=== PATIENT | female | born 1990 | race Caucasian/White ===

== ENCOUNTER 2017-03-31 00:21 | Inpatient (IN) | payer MEDICAID ==
[~2017-03-31] VITALS: Ht 160 cm; Wt 68.2 kg
[~2017-03-31 00:21] MED LIST: PREN1TAB60 PO
[2017-03-31] MEDS ORDERED: LACTATED RINGERS 1,000 ML IV SCH ×3 (10:42→12:52)
[2017-03-31] MEDS ORDERED: OXYTOCIN 30U/ 0.9% NaCL 500ML 500 ML IV SCH (10:42)
[2017-03-31] MEDS ORDERED: NEWBORN KIT ONE (10:46)
[2017-03-31] MEDS ORDERED: SODIUM CITRATE/CITRIC ACID 30 ML UDC ONE (10:46)
[2017-03-31] MEDS ORDERED: METOCLOPRAMIDE 5 MG/ML, 2ML ONE (10:46)
[2017-03-31] MEDS ORDERED: OXYTOCIN 30U/ 0.9% NaCL 500ML 500 ML ONE (10:46)
[2017-03-31] MEDS ORDERED: METOCLOPRAMIDE 5 MG/ML, 2ML IV ONE (11:00)
[2017-03-31] MEDS ORDERED: SODIUM CITRATE/CITRIC ACID 30 ML UDC PO ONE (11:00)
[2017-03-31] MEDS ORDERED: PLEASE ENTER HEIGHT AND WEIGHT MC SCH (11:00)
[2017-03-31] MEDS ORDERED: LACTATED RINGERS 1,000 ML IVBOLUS ONE (11:00)
[2017-03-31 11:12] LABS: BASOPHILS # (AUTO) 0.07 x10^3/uL (0-0.1); BASOPHILS % (AUTO) 1 % (0-1); EOSINOPHILS # (AUTO) 0.03 x10^3/uL (0-0.4); EOSINOPHILS % (AUTO) 0 % (1-7); LYMPHOCYTES # (AUTO) 2.38 x10^3/uL (1-3.4); LYMPHOCYTES % (AUTO) 17 % (22-44); MD NO; MEAN CORPUSCULAR HEMOGLOBIN 31.5 pg (27.0-34.8); MEAN CORPUSCULAR HGB CONC 33.9 g/dL (32.4-35.8); MEAN PLATELET VOLUME 9.7 fL (7.4-10.4); MONOCYTES # (AUTO) 0.88 x10^3/uL (0.2-0.8); MONOCYTES % (AUTO) 6 % (2-9); NEUTROPHILS # (AUTO) 10.97 x10^3/uL (1.8-6.8); NEUTROPHILS % (AUTO) 77 % (42-75); PLATELET COUNT 225 x10^3/uL (130-400); RED BLOOD COUNT 4.37 x10^6/uL (3.82-5.3); RED CELL DISTRIBUTION WIDTH 12.6 % (9.6-15.2)
[2017-03-31 11:14] VITALS: BP 120/83
[2017-03-31] MEDS ORDERED: KETOROLAC 30 MG/1 ML ONE (12:49)
[2017-03-31] MEDS ORDERED: EPINEPHRINE 1 MG/ML, 1ML ONE (12:49)
[2017-03-31] MEDS ORDERED: EPHEDRINE 50 MG/ML, 1ML ONE (12:49)
[2017-03-31] MEDS ORDERED: CEFAZOLIN 1,000 MG ONE (12:49)
[2017-03-31] MEDS: OXYTOCIN 30U/ 0.9% NaCL 500ML 500 ML IV SCH ×2 (12:52→22:52)
[2017-03-31] MEDS: LACTATED RINGERS 1,000 ML IV SCH ×2 (12:52→20:52)
[2017-03-31] MEDS ORDERED: MISOPROSTOL 200 MCG TABLET PR PRN (13:00)
[2017-03-31] MEDS ORDERED: OXYcodone/APAP 5/325MG TABLET PO PRN (13:00)
[2017-03-31] MEDS ORDERED: OXYcodone 5 MG/5 ML ORAL.SOL UDC ONE (13:25)
[2017-03-31] MEDS ORDERED: OXYcodone 5 MG/5 ML ORAL.SOL UDC PO ONE (14:30)
[2017-03-31] MEDS: KETOROLAC 30 MG/1 ML IV PRN ×2 (15:57→22:10)
[2017-03-31 16:00] VITALS: BP 122/85
[2017-03-31] MEDS ORDERED: OXYTOCIN 10 UNITS/ML, 1ML ONE (16:42)
[2017-03-31] MEDS: morphine SULFATE 10 MG/ML, 1ML IVPush PRN (16:55)
[2017-03-31 19:21] LABS: BASOPHILS # (AUTO) 0.02 x10^3/uL (0-0.1); BASOPHILS % (AUTO) 0 % (0-1); EOSINOPHILS # (AUTO) 0.02 x10^3/uL (0-0.4); EOSINOPHILS % (AUTO) 0 % (1-7); LYMPHOCYTES # (AUTO) 1.93 x10^3/uL (1-3.4); LYMPHOCYTES % (AUTO) 13 % (22-44); MD NO; MEAN CORPUSCULAR HEMOGLOBIN 31.4 pg (27.0-34.8); MEAN CORPUSCULAR HGB CONC 33.5 g/dL (32.4-35.8); MEAN CORPUSCULAR VOLUME 93.9 fL (80-100); MEAN PLATELET VOLUME 9.5 fL (7.4-10.4); MONOCYTES # (AUTO) 0.67 x10^3/uL (0.2-0.8); MONOCYTES % (AUTO) 5 % (2-9); NEUTROPHILS # (AUTO) 12.32 x10^3/uL (1.8-6.8); NEUTROPHILS % (AUTO) 82 % (42-75); PLATELET COUNT 180 x10^3/uL (130-400); RED BLOOD COUNT 3.77 x10^6/uL (3.82-5.3); RED CELL DISTRIBUTION WIDTH 12.3 % (9.6-15.2)
[2017-03-31 19:40] VITALS: BP 122/77
[2017-03-31] MEDS: OXYcodone/APAP 5/325MG TABLET PO PRN (19:55)
[2017-04-01] MEDS: OXYcodone/APAP 5/325MG TABLET PO PRN ×3 (00:01→08:01)
[2017-04-01 00:05] VITALS: BP 109/70
[2017-04-01] MEDS: KETOROLAC 30 MG/1 ML IV PRN ×2 (03:45→10:03)
[2017-04-01 04:00] VITALS: BP 110/75
[2017-04-01] MEDS: morphine SULFATE 10 MG/ML, 1ML IVPush PRN (04:07)
[2017-04-01] MEDS: LACTATED RINGERS 1,000 ML IV SCH (04:52)
[2017-04-01] MEDS ORDERED: DOCUSATE 100 MG CAPSULE ONE (07:53)
[2017-04-01 08:00] VITALS: BP 113/74
[2017-04-01] MEDS: PRENATAL VIT/IRON/FA 1 EACH TABLET PO SCH (08:01)
[2017-04-01] MEDS ORDERED: HYDROcodone/APAP 5/325 TABLET PO PRN (09:30)
[2017-04-01] MEDS: DOCUSATE 100 MG CAPSULE PO SCH ×2 (10:03→19:45)
[2017-04-01] MEDS: HYDROcodone/APAP 10/325 MG TABLET PO PRN ×4 (12:01→22:53)
[2017-04-01] MEDS: IBUPROFEN 600 MG TABLET PO PRN ×2 (15:38→21:19)
[2017-04-01 19:35] VITALS: BP 116/79
[2017-04-02] MEDS: HYDROcodone/APAP 10/325 MG TABLET PO PRN ×7 (02:10→21:52)
[2017-04-02] MEDS: IBUPROFEN 600 MG TABLET PO PRN ×3 (05:19→18:44)
[2017-04-02] MEDS ORDERED: MEASLES,MUMPS&RUBELLA VACC/PF 0.5 ML SQ-VACC ONE ×2 (06:00→20:00)
[2017-04-02 07:05] VITALS: BP 107/73
[2017-04-02] MEDS: DOCUSATE 100 MG CAPSULE PO SCH ×2 (07:49→21:52)
[2017-04-02] MEDS: PRENATAL VIT/IRON/FA 1 EACH TABLET PO SCH (07:49)
[2017-04-02] MEDS ORDERED: HYDROcodone/APAP 10/325 MG TABLET ONE (15:22)
[2017-04-02 20:30] VITALS: BP 110/76
[2017-04-03] MEDS: IBUPROFEN 600 MG TABLET PO PRN ×2 (01:12→07:50)
[2017-04-03] MEDS: HYDROcodone/APAP 10/325 MG TABLET PO PRN (01:12)
[2017-04-03] MEDS: PRENATAL VIT/IRON/FA 1 EACH TABLET PO SCH (07:50)
[2017-04-03] MEDS: DOCUSATE 100 MG CAPSULE PO SCH (07:50)
[2017-04-03 09:42] VITALS: BP 114/84
[2017-04-03] MEDS ORDERED: OXYC-302 PO (09:49)
[2017-04-03] MEDS ORDERED: IBUP-1222 PO (09:49)
== END 2017-04-03 13:45 | disposition home or self-care (01) | DRG 766 ==
LOC: LDIP 10:18 → 2NW 15:01
PROVIDERS: ADMIT Obstetrics & Gynecology; ATTEND Obstetrics & Gynecology
PROC: 10D00Z1 Extraction of Products of Conception, Low, Open Approach (ICD-10-PCS; principal; 2017-03-31)
DX: O32.1XX0 Maternal care for breech presentation, not applicable or unspecified (principal); Z37.0 Single live birth; Z3A.39 39 weeks gestation of pregnancy
CPT/HCPCS: 36415; 85025; 86850; 86900; J0171; J0690; J1885; J2270; J2590; J2765; J7120